=== PATIENT | female | born 1965 | race Caucasian/White ===

== ENCOUNTER 2025-01-25 08:24 | Day surgery (SDC) | payer BC ==
[~2025-01-25 08:24] MED LIST: LIDOCAINE 1% (10MG/ML) FOR IV START INTRADERMA PRN
[2025-01-25 08:55] VITALS: TEMP 97.4
[2025-01-25] MEDS: IV FLUID CONTINUATION 1,000 ML IV ONE (08:58)
[2025-01-25] MEDS: LACTATED RINGERS 1,000 ML IV SCH (08:58)
[2025-01-25] MEDS ORDERED: PROPOFOL 10 MG/ML 20 ML VIAL IV ONE (10:22)
--- NOTE | 2025-01-25 10:38 | P.PCN ---
Date of Procedure: 01/25/25 Procedure(s) Performed: BRIEF HISTORY: Patient is a 59-year-old pleasant white meat scheduled for an elective colonoscopy as a part of for colon cancer. PROCEDURE PERFORMED: Colonoscopy. PREOPERATIVE DIAGNOSIS: Screening for colon cancer. IV sedation per Anesthesia. PROCEDURE: After informed consent was obtained, the patient, was brought into the endoscopy unit. IV sedation was administered by Anesthesia under continuous monitoring. Digital rectal examination was normal. Initially the Olympus CF-160 flexible video colonoscope was then inserted in the rectum, gradually advanced into the cecum without any difficulty. Careful examination was performed as the scope was gradually being withdrawn. Ileocecal valve and the appendiceal orifice were visualized and appeared normal. Prep was excellent. Mucosa of the cecum, ascending colon, transverse colon, descending colon, sigmoid colon, and rectum appeared normal. Scattered sigmoid diverticulosis. Retroflexion was performed in the rectum and small internal hemorrhoids were seen. The patient tolerated the procedure well. IMPRESSION: Normal-appearing colon from rectum to cecum with no evidence of colorectal neoplasia. Scattered sigmoid diverticulosis and small internal hemorrhoids RECOMMENDATIONS: Findings of this examination were discussed with the patient as well as her family. She was advised to have repeat screening colonoscopy in 10 years.
[2025-01-25 10:44] VITALS: RESP 16
[2025-01-25 11:13] VITALS: BP 114/72; PULSE 68
== END 2025-01-25 11:29 | disposition home or self-care (01) ==
LOC: ORWHC2ENDO 08:24
PROVIDERS: ATTEND Internal Medicine Gastroenterology
DX: Z12.11 Encounter for screening for malignant neoplasm of colon (principal); K57.30 Diverticulosis of large intestine without perforation or abscess without bleeding; K64.8 Other hemorrhoids; Z79.899 Other long term (current) drug therapy
CPT/HCPCS: 45378; J2704